=== PATIENT | female | born 1985 | race Caucasian/White ===

== ENCOUNTER 2017-01-31 13:56 | Emergency (ER) | payer OTHER ==
[~2017-01-31] VITALS: Ht 170.2 cm; Wt 92.7 kg
[2017-01-31 13:57] VITALS: BP 128/91
[2017-01-31] MEDS ORDERED: MULT1CHW26 PO (14:07)
[2017-01-31] MEDS ORDERED: CIPRODEX AD (17:29)
[2017-01-31] MEDS ORDERED: AUGM875T28 PO (17:29)
[2017-01-31] MEDS ORDERED: ULTR50TA8 PO (17:29)
== END 2017-01-31 18:05 | disposition home or self-care (01) ==
LOC: M ED 13:56
DX: H60.311 Diffuse otitis externa, right ear (principal); H66.001 Acute suppurative otitis media without spontaneous rupture of ear drum, right ear; Z88.8 Allergy status to other drugs, medicaments and biological substances; Z91.048 Other nonmedicinal substance allergy status